=== PATIENT | female | born 1990 | race American Indian/Alaskan Native ===

== ENCOUNTER 2021-02-23 22:42 | Emergency (ER) | payer SELFPAY ==
[2021-02-24] MEDS ORDERED: IBUPROFEN 800 MG TAB PO ONE (00:31)
[2021-02-24] MEDS ORDERED: ACETAMINOPHEN 500 MG TAB PO ONE (00:31)
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
[2021-02-24 04:05] VITALS: BP 119/72
--- NOTE | 2021-02-24 06:30 | XRay Report ---
XR hand 3+V RT INDICATION / CLINICAL INFORMATION: punched wall. COMPARISON: None available. FINDINGS: No acute fracture. Normal alignment. Joint spaces are preserved. No destructive osseous lesion or s uspicious periosteal reaction. Impression: 1.No acute fracture. Signer Name: Fabián Bailey MD Signed: 02/24/2021 1:10 AM Workstation Name: [id number]
--- NOTE | 2021-02-27 17:36 | Electrocardiograph Report ---
[facility] Test Date: 2021-02-24 Test Time: 00:41:23 Pat Name: CHHAYA KELLER Department: Room: Gender: F [employer]or Services Coordinator: NURSE : 1990 Requested By: AMBROCIO ZAIDI Order Number: [id number] Reading MD: Hilary Mejia Measurements Intervals [place] Rate: 48 P: 19 FL: 147 QRS: 30 QRSD: 81 T: 35 QT: 438 QTc: 390 Interpretive Statements Sinus bradycardia with irregular rate No previous ECG available for comparison Electronically Signed On 02-27-2021 17:36:33 EDT by Hilary Mejia
== END 2021-02-24 03:35 | disposition home or self-care (01) ==
LOC: ED 22:42
DX: S16.1XXA Strain of muscle, fascia and tendon at neck level, initial encounter (principal); S60.221A Contusion of right hand, initial encounter; R55 Syncope and collapse; Z79.899 Other long term (current) drug therapy; V49.49XA Driver injured in collision with other motor vehicles in traffic accident, initial encounter; Y92.410 Unspecified street and highway as the place of occurrence of the external cause; Y93.89 Activity, other specified; Y99.8 Other external cause status
CPT/HCPCS: 36415; 84703; 93005